=== PATIENT | female | born 1965 | race African-American/Black ===

== ENCOUNTER → 2019-07-23 | Outpatient (CLI) | payer OTHER ==
[~2019-07-23] MED LIST: AYGESTIN 5 MG TA5 M1 PO; BACTRIM DS TAB1 EACH PO; HYDROCODON-ACE1 EAC5 PO; IBUPROFEN 800800 M1 PO; IRON236 MG PO; MOM PO; SIMETHICON CHEW80 M1 PO; VITAMIN B-125000 MCG SUBLING; VITAMIN D250000 UNIT PO
== END ==
LOC: RAD 14:50
DX: M51.34 Other intervertebral disc degeneration, thoracic region (principal); M48.04 Spinal stenosis, thoracic region; M25.78 Osteophyte, vertebrae

== ENCOUNTER → 2019-08-10 | Outpatient (CLI) | payer OTHER ==
[~2019-08-10] VITALS: Ht 167.6 cm; Wt 144.1 kg
[2019-08-10 12:50] VITALS: BP 144/86
--- NOTE | 2019-08-10 13:05 | NUR ---
Pain Clinic Assessment: 1. History of Osteoarthritis: Not Applicable History of Rheumatoid Arthritis: Not Applicable 2. Height: 5 ft. 6 in. 167.6 cm. Weight: 317.6 lb. oz. 144.063 kg. Patient's BMI: 51.3 3. Vital Signs: BP: 144/86 Pulse: 81 Resp: 20 Temp: 02 Sat: 100 ECG Mon: 4. Pain Intensity: 0 5. Fall Risk: Dizziness: N Needs help standing or walking: N Fallen in the last 3 months: N Fall risk comments: 6. Patient on Blood Thinner: None 7. History of Hypertension: N 8. Opioid Therapy greater than 6 weeks: N Opiate Contract Signed: 9. Risk Assessment Tool Provided: LOW RISK 0/3 10. Functional Assessment Tool: 11. Recreational Drug Use: Never Drug Type: Tobacco Use: Never Smoker Tobacco Type: Amount or Packs/day: How Many Years: Alcohol Use: No Frequency: Quant:
--- NOTE | 2019-08-17 13:05 | HPC ---
[facility] [address] [place] [address] PAIN MANAGEMENT CONSULTATION Name: TAMI ORTIZ Room #: REG [facility].#: [id number] Admission: 08/10/19 Attend Phys: Brock Russell DO Discharge: Date of : 69 Report #: [id number] THIS REPORT FOR: //name// CC: Gabino Russell DATE OF SERVICE: 08/10/2019 CHIEF COMPLAINT: Mid back pain. HISTORY OF PRESENT ILLNESS: As you know, the patient is a very pleasant 53-year-old morbidly obese female with acute onset of mid back pain that presented in July 2019. The patient denies specific injury or trauma that may have led to symptom development. The patient has trialled conservative therapy, [id number] medications and some light stretching activities, but has noted no improvement in symptoms. She sought evaluation through her nurse practitioner, Gabino Hill who sent the patient for x-ray imaging. X-ray imaging showed moderate degenerative changes throughout the thoracic spine, but no lateralizing features. She was complaining of this mid back pain with radiation to the right side just underneath her breast. She was concerned that possibly her large breasts were causing issues. She was advised to follow up with our clinic to discuss treatment options as they did not have a diagnosis for the patient in regards to the distribution of pain. The patient today states the pain is periodic, describes the pain as sharp and stabbing, places current pain score 4/10, daily average at 6/10, worst pain has been 8/10. The patient states that movement of any type tends to exacerbate symptoms, sitting still and lying down tends to improve pain. The patient has been referred to our clinic to discuss treatment options for chest wall pain with unknown etiology. PAST MEDICAL HISTORY: 1. Anemia. 2. Severe morbid obesity. PAST SURGICAL HISTORY: Hysterectomy. SOCIAL HISTORY: The patient denies tobacco, alcohol, IV or illicit drug use. 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 She is unaccompanied today. REVIEW OF SYSTEMS: Positive for rectal bleeding, breast pain, right chest wall pain, upper back pain. All other review of systems negative per 12-point review of systems, and those listed in history of present illness. [address] [address] PAIN MANAGEMENT CONSULTATION Name: TAMI ORTIZ Room #: REG [facility].#: [id number] Admission: 08/10/19 Attend Phys: Brock Russell DO Discharge: Date of : 69 Report #: [id number] Pain impact score indicating mild interference of daily activities secondary to pain. ALLERGIES: No known drug allergies. CURRENT MEDICATIONS: Cyanocobalamin 5000 mcg sublingual per day, vitamin D2 50,000 units per week. IMAGING: X-ray of the thoracic spine shows mild degenerative changes, no lateralizing features. PHYSICAL EXAMINATION: VITAL SIGNS: Blood pressure 144/86, pulse 81, respiratory rate 20 and unlabored. The patient is 100% on room air. Height 5 feet 6 inches tall, weight 317.6 pounds, BMI calculated 51.3. GENERAL: Well-developed, well-nourished, well-hydrated, severely morbidly obese 53-year-old female appearing stated age, pain is rated at currently 0/10. HEENT: Normocephalic, atraumatic. Pupils equal, round, reactive to light. Extraocular muscles are intact. Sclerae nonicteric without injection. NEUROLOGIC: Cranial nerves 2-12 grossly intact. Speech fluent. The patient deemed a good historian. LUNGS: Clear, no wheeze, rhonchi or rales. There is no change in pain with inhalation and exhalation of normal tidal volume. No pain elicited with deep inhalation or forced exhalation. CARDIOVASCULAR: Regular. No appreciable gallop, no rub. ABDOMEN: Soft. Severely obese, normoactive bowel sounds. EXTREMITIES: Show no clubbing, no cyanosis, no edema. MUSCULOSKELETAL: There is palpatory tenderness noted over the mid thoracic area in and around the T6-T7 level on the right. Deep palpation of the area causes some intensification of pain. There is no rash, lesions, or ulcerations, overlying area concerning of herpes zoster. Upper extremity strength, lower extremity strength equal and symmetrical 5/5. Muscle bulk and tone equal and symmetrical in comparing left upper extremity and left lower extremity to right upper extremity and right lower extremity. ASSESSMENT: 1. Thoracic pain. 2. Possible thoracic radiculopathy. 3. Right chest wall pain. PLAN: 1. Based on today's physical exam and history the patient has provided, the description the patient uses in regards to pain, the source of symptoms could be related to a thoracic radiculopathy. The patient does have very large breasts that are probably causing some compressive forces in the area, though the breast [facility] [address] [place] [address] PAIN MANAGEMENT CONSULTATION Name: TAMI ORTIZ Room #: REG [facility]#: [id number] Admission: 08/10/19 Attend Phys: Brock Russell DO Discharge: Date of : 69 Report #: [id number] tissue itself is not causing anything other than myofascial symptoms and some accentuation of the thoracic kyphosis based on physical exam. There is a possibility the patient has a displaced intervertebral disk in the thoracic spine that is causing compression on the nerve root exiting at the level of her discomfort. X-ray imaging will not be able to show this in its entirety. We have discussed this with the patient today. Further evaluation I believe is necessary before making a making treatment options available. The patient is amenable for further imaging. 2. Recommend MRI of thoracic spine without contrast. Further imaging, I believe is necessary, so that we can determine the specific source of the patient's symptoms and determine then from that point what treatment options might be available. The patient will undergo MRI of thoracic spine without contrast. Once this is completed, we will have the patient return to review and determine then treatment course based on those findings. 3. No medication changes made at today's visit. The patient will continue current medical therapy as previously prescribed. 4. We will see the patient back in followup visit once the MRI is completed to review those findings. We will make these available to the referring team. 5. We wish to thank Gabino Hill for the referral of the patient to our clinic. We will keep you apprised of response to treatment as we address her right chest wall pain radiating towards the underside of the right breast. Again, we wish to thank you for the opportunity to see this patient in consultation. <ELECTRONICALLY SIGNED> By: Brock Russell DO 08/17/19 1305 [id number] 1106 Brock Russell DO /nt
== END ==
LOC: PAIN 06:50
DX: M54.6 Pain in thoracic spine (principal); R07.89 Other chest pain

== ENCOUNTER → 2019-08-13 | Outpatient (CLI) | payer OTHER | LOC: MRI 12:55 | DX: M51.14 Intervertebral disc disorders with radiculopathy, thoracic region (principal); M25.78 Osteophyte, vertebrae ==

== ENCOUNTER → 2019-09-01 | Outpatient (CLI) | payer OTHER ==
[~2019-09-01] VITALS: Ht 167.6 cm; Wt 145.8 kg
[~2019-09-01] MED LIST changes: +HYDROCODON-ACE1 EAC7 PO; +NABUMETONE 500500 M1 PO
[2019-09-01 13:19] VITALS: BP 150/83
--- NOTE | 2019-09-01 13:29 | NUR ---
Pain Clinic Assessment: 1. History of Osteoarthritis: Not Applicable History of Rheumatoid Arthritis: Not Applicable 2. Height: 5 ft. 6 in. 167.6 cm. Weight: 321.4 lb. oz. 145.787 kg. Patient's BMI: 51.9 3. Vital Signs: BP: 150/83 Pulse: 86 Resp: 16 Temp: 02 Sat: 98 ECG Mon: 4. Pain Intensity: 0 5. Fall Risk: Dizziness: N Needs help standing or walking: N Fallen in the last 3 months: N Fall risk comments: 6. Patient on Blood Thinner: None 7. History of Hypertension: N 8. Opioid Therapy greater than 6 weeks: N Opiate Contract Signed: 9. Risk Assessment Tool Provided: LOW RISK 0/3 10. Functional Assessment Tool: 11. Recreational Drug Use: Never Drug Type: Tobacco Use: Never Smoker Tobacco Type: Amount or Packs/day: How Many Years: Alcohol Use: No Frequency: Quant:
--- NOTE | 2019-09-08 12:58 | HPC ---
[facility] [address] [place] [address] PAIN MANAGEMENT CONSULTATION Name: DIANATAMI D [id number] Admission: 09/01/19 Attend Phys: Brock Russell DO Discharge: Date of : 69 Report #: [id number] THIS REPORT FOR: //name// CC: Gabino Russell DATE OF SERVICE: 09/01/2019 CHIEF COMPLAINT: Mid back pain. HISTORY OF PRESENT ILLNESS: As you know, the patient is a very pleasant 53-year-old female returning in followup visit to review MRI of the thoracic spine to further evaluate the patient's ongoing thoracic pain. There was concern that the pain the patient was experiencing was myofascial in nature, though x-ray imaging did show some potential changes in the thoracic spine and further evaluation was necessary. She returns today to review that MRI and discuss treatment options. She is placing pain score 0/10. She states her pain is intermittent, exacerbated with certain activities, improves with rest and relaxation. The patient denies any inciting injury or trauma that led to ongoing pain issues, but does note that symptoms progressed spontaneously and resolved spontaneously. She returns to review MRI. ALLERGIES: No known drug allergies. CURRENT MEDICATIONS: Cyanocobalamin 5000 mcg sublingual once a day, vitamin D 50,000 units. SOCIAL HISTORY: The patient denies tobacco, alcohol, IV or illicit drug use. She is employed as a financial counselor, working, not receiving workmen's compensation, accompanied by her , present in room today. IMAGING: No new imaging. MRI of the thoracic spine obtained on 08/13/2019 shows multilevel right anterior lateral bridging osteophytic changes within the mid and lower thoracic spine. There is some mild chronic anterior vertebral body height loss at T7, no acute compression fracture. No lateralizing features other than the bridging osteophytes on the right. PHYSICAL EXAMINATION: VITAL SIGNS: Blood pressure 150/83, pulse 86, respiratory rate 16 and unlabored. The patient is 98% on room air. Height 5 feet 6 inches tall, weight 321.4 pounds, BMI calculated 51.9. GENERAL: Well-developed, well-nourished, well-hydrated, severely morbidly obese 53-year-old female appearing stated age, pain is rated at 0/10. HEENT: Normocephalic, atraumatic. Pupils equal, round, reactive to light. Extraocular muscles are intact. [address] [address] PAIN MANAGEMENT CONSULTATION Name: SARAH ORTIZRA [place] Room #: REG [facility]#: [id number] Admission: 09/01/19 Attend Phys: Brock Russell DO Discharge: Date of : 69 Report #: [id number] EXTREMITIES: Show no clubbing, no cyanosis, and no edema. MUSCULOSKELETAL: Upper extremity strength appears symmetrical 5/5, intact to light touch from C5-T1 dermatomes, again from T1 through T12 dermatomes. Deep palpation of the upper thoracic area causes some intensification of pain on the right. No rash, lesions or ulcerations overlying area. Provocating testing is met with no increase in pain. ASSESSMENT: 1. Thoracic pain. 2. Thoracic osteophytic formation. 3. Right chest wall pain. PLAN: 1. Based on today's physical exam, history the patient has provided, and the description the patient uses in regard to pain as well as location of symptoms and the findings of her MRI, likely source of the patient's pain is the bridging osteophytes noted on the right side of the mid and lower thoracic area. This appears to be chronic wedging issue secondary to morbid obesity and her pendulous breasts. This leads to ongoing right chest pain. There is no lateralizing feature that would be amenable to any type of injection. We have discussed this with the patient today. Unfortunately, treatment for the symptoms the patient is experiencing has to be more conservative in nature. The best possible solution to the patient's ongoing symptoms is a significant weight loss and potential breast reduction surgery, which will reduce the strain upon the upper thoracic area and reduce the continuation of the bridging osteophytes noted on the right. Surgical options do not exist at this point from a back standpoint to address this issue. We would recommend and will start the patient on some medications for pain control. This can be followed through with her referring nurse practitioner, Gabino Hill. 2. The patient will be started on nabumetone 500 mg dose 1 tab p.o. t.i.d. If you have started the patient with three tab a day dose with the understanding that as she improves, she can reduce the dose over the following days to ultimately come off the medication and should be only used when the pain is present, it should not be used on a long-term basis. I have given the patient #90 tablets with 2 refills. This is a significant amount of medication and should provide the patient with good and prolonged benefit. She will watch for side effects of dyspepsia, worsening blood pressure, lower extremity edema with use of medication. 3. We have taken the liberty of starting the patient on a low dose hydrocodone. This can be followed up by her PCP. It does not require a practicing pain physician to write for medication that is legal for all physicians to write with appropriate [place] licensure. We have given the patient a [place] 5/325 one tab p.o. q.4 hours p.r.n. for pain. I have given 45 tablets with advised to utilize the medication only when pain is intolerable, not to rely on the medication prophylactically. 4. We wish to thank nurse practitioner, Gabino Hill for the opportunity to see [facility] [address] [place] [address] PAIN MANAGEMENT CONSULTATION Name: DIANATAMI Room #: REG [facility] Eric#: [id number] Admission: 09/01/19 Attend Phys: Brock Russell DO Discharge: Date of : 69 Report #: [id number] the patient in consultation. Unfortunately, interventional treatment for this patient are not present; though, I believe medication management and a concerted effort at weight loss will provide the patient with benefit, we are looking to achieve. We wish to thank you for the opportunity to see the patient in consultation. We will be returning her care to your services to continue medication management as deemed necessary. Again, we wish to thank you for the opportunity to see this patient in consultation. <ELECTRONICALLY SIGNED> By: Brock Russell DO 09/08/19 [id number] [id number] Brock Russell DO /nt
== END ==
LOC: PAIN 06:57
DX: M54.6 Pain in thoracic spine (principal); M25.78 Osteophyte, vertebrae

== ENCOUNTER → 2019-10-01 | Outpatient (CLI) | payer OTHER | LOC: RAD 09:54 | DX: Z12.31 Encounter for screening mammogram for malignant neoplasm of breast (principal) ==

== ENCOUNTER → 2021-09-03 | Outpatient (CLI) | payer OTHER | LOC: RAD 14:44 | PROVIDERS: ATTEND Nurse Practitioner | DX: M50.322 Other cervical disc degeneration at C5-C6 level (principal); M25.512 Pain in left shoulder ==

== ENCOUNTER → 2021-10-02 | Outpatient (CLI) | payer BC, OTHER | LOC: BC 09:56 | PROVIDERS: ATTEND Nurse Practitioner | DX: Z12.31 Encounter for screening mammogram for malignant neoplasm of breast (principal); N64.89 Other specified disorders of breast ==